=== PATIENT | male | born 1955 ===

== ENCOUNTER 2017-08-11 16:57 | Inpatient (IN) | payer MEDICARE, BC ==
[~2017-08-11] VITALS: Ht 180.3 cm; Wt 144.6 kg
[2018-05-25] VITALS (9 sets, daily range): BP systolic 131–152; BP diastolic 58–90; PULSE 66–80; TEMP 97.7–98.5
[2018-05-25] MEDS ORDERED: VASOTEC 10M10 MG/TAB PO (08:04)
[2018-05-25] MEDS ORDERED: ADVIL200 MG PO (08:07)
[2018-05-25] MEDS ORDERED: TIROSINT75 MC1 PO (08:08)
[2018-05-25] MEDS ORDERED: MOBIC15 MG PO (08:13)
[2018-05-25] MEDS ORDERED: PRILOSEC10 MG PO (08:13)
[2018-05-25] MEDS ORDERED: MIRAPEX 1MG PO (08:15)
[2018-05-25] MEDS ORDERED: ULTRAM 50MG TAB50 MG PO (08:16)
[2018-05-26 00:20] VITALS: BP 139/61; PULSE 80; TEMP 98.2
[2018-05-26 04:07] VITALS: BP 123/65; PULSE 64; TEMP 98.2
[2018-05-26] MEDS ORDERED: NORCO 325 MG-7.1 TAB PO (06:25)
[2018-05-26] MEDS ORDERED: ASPI325T6 PO (06:25)
[2018-05-26] MEDS ORDERED: CELEBREX 200MG200 MG PO (06:25)
[2018-05-26 07:19] LABS: HEMOGLOBIN 11.3 g/dl (13.5-18.0)
[2018-05-26 07:55] VITALS: BP 150/67; PULSE 69; TEMP 99.2
== END 2018-05-26 11:30 | disposition home or self-care (01) | DRG 470 ==
LOC: JCC 09-29 10:00
PROVIDERS: Orthopaedic Surgery; Physician Assistant
PROC: 0SRC0J9 Replacement of Right Knee Joint with Synthetic Substitute, Cemented, Open Approach (ICD-10-PCS; principal; 2018-05-25 10:15)
DX: M17.11 Unilateral primary osteoarthritis, right knee (principal); I10 Essential (primary) hypertension; E11.9 Type 2 diabetes mellitus without complications; J44.9 Chronic obstructive pulmonary disease, unspecified; Z85.060 Personal history of malignant carcinoid tumor of small intestine; F17.210 Nicotine dependence, cigarettes, uncomplicated; G47.33 Obstructive sleep apnea (adult) (pediatric)
CPT/HCPCS: A4314; C1713; C1776; J0690; J1100; J1170; J1885; J2250; J2270; J2405; J2704; J2795; J3010; J7042; J7120